=== PATIENT | female | born 1950 | race Caucasian/White ===

== ENCOUNTER 2017-02-21 16:45 | Emergency (ER) | payer MEDICARE ==
[~2017-02-21] VITALS: Ht 162.6 cm; Wt 70.0 kg
[2017-02-21 16:47] VITALS: BP 176/94; PULSE 62; RESP 20; TEMP 97.6; O2SAT 97
[2017-02-21] MEDS ORDERED: KETOROLAC TROMETHAMINE 60 MG/2 ML (IM) VIAL IM ONE (17:00)
--- NOTE | 2017-02-21 17:11 | PD ---
HPI Chief Complaint: Skin Problem Time Seen by Provider: 17:01 Travel History International Travel<30 days: No Contact w/Intl Traveler<30days: No Traveled to known affect area: No History of Present Illness HPI 66-year-old female presents to the emergency department complaining of nose pain and a laceration after a shelf fell and hit her in the nose today. Denies loss of consciousness. Denies anticoagulants. Denies change in vision. Denies lightheadedness, dizziness. Did have some epistaxis after the incident which resolved on its own. Has not taken any medications to alleviate her symptoms. Has ice applied to her face. Unknown tetanus status and declines tetanus update at this time. Allergies to erythromycin, prednisone, strawberries. Has no other medical complaints. No modifying factors or associated signs and symptoms. PFSH Past Medical History Cancer: Yes (cervical in ) High Cholesterol: Yes Thyroid Disease: Yes Past Surgical History Cholecystectomy: Yes Eye Surgery: Yes (lasik) Hysterectomy: Yes (partial) Social History Alcohol Use: Yes (occ) Tobacco Use: No Substance Use: No Allergies-Medications (Allergen,Severity, Reaction): Coded Allergies: [place] (Verified Allergy, Severe, 02/21/17) ANAPHLAXIS Erythromycin (Verified Adverse Reaction, Severe, 02/21/17) GI ISSUES Prednisone (Verified Adverse Reaction, Severe, 02/21/17) GI N/V Reported Meds & Prescriptions Reported Meds & Active Scripts Active Lortab (Hydrocodone-Acetaminophen) 5-325 Mg Tab 1 Tab PO Q4-6H PRN Keflex (Cephalexin) 500 Mg Cap 500 Mg PO Q6H 5 Days Review of Systems Except as stated in HPI: all other systems reviewed are Neg Physical Exam Narrative GENERAL: Well-nourished, well-developed female patient, in no acute distress SKIN: Warm and dry. Approximately 1 cm laceration to the bridge of the nose; bleeding controlled and there is minimal amount of bright red drainage. HEAD: Atraumatic. Normocephalic. Bridge of Nose is mildly edematous and with tenderness on palpation EYES: Pupils equal and round at 3 mm with brisk reaction. No scleral icterus. No injection or drainage. No raccoon eyes. EOMI. PERRLA. No orbital tenderness on palpation. ENT: Mucosa pink and moist. Airway patent. Nasal turbinates appear normal with minimal nasal blood to the right area; without purulent drainage or septal hematoma; bilateral nares are patent. NECK: Trachea midline. CARDIOVASCULAR: Regular rate. RESPIRATORY: No accessory muscle use. GASTROINTESTINAL: Rounded. MUSCULOSKELETAL: No obvious deformities. No clubbing. No cyanosis. No edema. NEUROLOGICAL: Awake and alert. Oriented 3. No obvious cranial nerve deficits. Motor grossly within normal limits. Normal speech. PSYCHIATRIC: Appropriate mood and affect; insight and judgment normal. Data Data Last Documented VS Vital Signs Date Time Temp Pulse Resp B/P Pulse Ox O2 Delivery O2 Flow Rate FiO2 02/21/17 16:47 97.6 62 20 176/94 97 Room Air Orders Nasal Bones (Min 3 Vws) (02/21/17 ) Ketorolac Inj (Toradol Inj) (02/21/17 17:00) Ice/Cold Pack (02/21/17 17:00) MDM Medical Decision Making Medical Screen Exam Complete: Yes Emergency Medical Condition: Yes Medical Record Reviewed: Yes Differential Diagnosis Nose contusion, laceration, fracture Narrative Course 66-year-old female with nose injury and laceration to the bridge of the nose. See my procedure note for laceration repair. Unknown tetanus status and patient declines tetanus update at this time. Toradol administered in the ER. Ice pack ordered. Nasal bone x-ray ordered. 1820: Nasal bone x-ray concludes: Last 24 hours Impressions Nasal Bones X-Ray 02/21/17 0000 Signed Impressions: Service Date/Time: January 17:18 - CONCLUSION: Mildly depressed nasal bone fracture. Kwame Harris MD I spoke with Dr. Stinson, my attending physician, and she recommended oral antibiotics. Patient provided copy of the x-ray report. Keflex, Lortab prescribed for home. Instructed patient to follow up with either general surgery or plastic surgery. Instructed patient to follow up with primary care provider. Patient verbalizes understanding and agreement with treatment plan. Patient is medically cleared and stable for discharge. Discussed reasons to return to the emergency department. Patient agrees with treatment plan. The patients vital signs are stable and the patient is stable for outpatient follow- up and treatment. Patient discharged home, stable and in no acute distress. Procedures Procedure Narrative LACERATION LOCATION: Bridge of nose LENGTH: 1 cm NUMBER OF STITCHES/MEGAN: zero; laceration was closed using Dermabond REPAIR: The area of the laceration was cleaned with normal saline. The wound was closed using Dermabond. This was a single layer repair. A sterile dressing was applied. The patient was advised to keep the dressing clean and dry. Patient tolerated the procedure well. Diagnosis Primary Impression: Laceration of nose Qualified Code: S01.21XA - Laceration of nose, initial encounter Additional Impression: Nasal bone fracture Qualified Code: S02.2XXB - Open fracture of nasal bone, initial encounter Referrals: Plastic Surgeon Primary Care Physician Patient Instructions: Facial Contusion (ED), Facial Laceration (ED), General Instructions, Nasal Fracture (ED) Additional Instructions: Ibuprofen or Tylenol as directed and as needed for pain and inflammation Ice to affected area to reduce pain and inflammation Keep laceration clean and dry Follow-up with primary care provider Return to the emergency department immediately with worsening of symptoms Med/Other Pt SpecificInfo: Prescription(s) given Scripts Hydrocodone-Acetaminophen (Lortab)5-325 Mg Tab1 Tab PO Q4-6H PRN (PAIN) #15 TAB Ref 0 Prov:Adela Stinson MD 02/21/17 Cephalexin (Keflex)500 Mg Fks050 Mg PO Q6H 5 Days Ref 0 Prov:Sydney Mortensen 02/21/17 Disposition: 01 DISCHARGE HOME Condition: Stable Sydney Mortensen Feb 21, 2017 17:10
--- NOTE | 2017-02-21 18:07 | RADRPT ---
EXAM DATE/TIME: 02/21/2017 17:18 [facility] COMPARISON: No previous studies available for comparison. INDICATIONS : Trauma, nose, struck by shelf MEDICAL HISTORY : None. SURGICAL HISTORY : None. ENCOUNTER: Initial ACUITY: 1 day PAIN SCORE: 7/10 LOCATION: nasal bone FINDINGS: Lateral and Reinoso views of the nasal bones demonstrate a mildly depressed nasal bone fracture.. The re is mild soft tissue swelling. The infraorbital rims are intact. CONCLUSION: Mildly depressed nasal bone fracture. Kwame Harris MD on February 21, 2017 at 18:04 Board Certified Radiologist. This report was verified electronically.
[2017-02-21] MEDS ORDERED: CEPH-460 PO (18:17)
[2017-02-21] MEDS ORDERED: HYDR-3533 PO (18:18)
== END 2017-02-21 18:39 | disposition home or self-care (01) ==
LOC: NEPK 16:45
DX: S02.2XXB Fracture of nasal bones, initial encounter for open fracture (principal); E78.00 Pure hypercholesterolemia, unspecified; E07.9 Disorder of thyroid, unspecified; W22.8XXA Striking against or struck by other objects, initial encounter; Z88.1 Allergy status to other antibiotic agents; Z88.8 Allergy status to other drugs, medicaments and biological substances; Z85.41 Personal history of malignant neoplasm of cervix uteri; Z79.899 Other long term (current) drug therapy
CPT/HCPCS: 12011; 70160; 96372; 99284; J1885